=== PATIENT | female | born 1975 | race Caucasian/White ===

== ENCOUNTER 2020-03-28 12:22 | Emergency (ER) | payer OTHER ==
[~2020-03-28] VITALS: Ht 167.6 cm; Wt 65.0 kg
--- NOTE | 2020-03-28 12:43 | NUR ---
patient states arm - right - fell asleep hours ago and that it continues to feel pins/needles numbness. anoxic brain injury 14 years ago so she has memory issues according to her.
[2020-03-28 13:52] VITALS: BP 125/78
== END 2020-03-28 14:04 | disposition home or self-care (01) ==
LOC: ED 13:05
DX: G62.9 Polyneuropathy, unspecified (principal); R20.0 Anesthesia of skin; M54.9 Dorsalgia, unspecified; F17.200 Nicotine dependence, unspecified, uncomplicated
CPT/HCPCS: 93005; 99283